=== PATIENT | female | born 2000 | race Two or more races ===

== ENCOUNTER 2025-04-03 01:11 | Emergency (ER) | payer MEDICAID, OTHER ==
[~2025-04-03] VITALS: Ht 165.1 cm; Wt 150.7 kg
--- NOTE | 2025-04-03 02:05 | ED.PDOC ---
History of Present Illness HPI Comments 24-year-old female who came to ER for back pains. Patient with history of the hip dysplasia. States for the past 2 days she has been experiencing lower back pains, radiating to her bilateral hips. Denies any urinary symptoms, recent history of trauma, or tingling in both lower extremities. Patient's self-m edicated with ibuprofen and Tylenol but offered no relief. REVIEW OF SYSTEMS: General: No fever, no chills, or fatigue HEENT: No sore throat, no earache, no congestion, no neck pain. Cardiac: No chest pain. No palpitations. Lungs: No shortness of breath, no cough. GI: No nausea, no vomiting, no diarrhea, no constipation, no abdominal pain : No dysuria, frequency, or urgency. No hematuria. Musculoskeletal: No joint pain , no joint swelling, no extremity edema. (+) back pain Skin: No rash, no itching. Neuro: No headache, no dizziness, no weakness EXAM: General: Awake, alert and oriented. No acute distress. Skin: Skin in warm, dry and intact. Appropriate color for ethnicity. HEENT: The head is normocephalic and atraumatic. Conjunctivae are clear without exudates or hemorrhage. Sclera is non-icteric. EOM are intact. No signs of nystagmus. Eyelids are normal in appearance without swelling or lesions. Oral mucosa is pink and moist Neck: The neck is supple with normal range of motion. No JVD. Cardiac: Heart rate and rhythm are normal. No murmurs, gallops, or rubs are auscultated. Respiratory: No signs of respiratory distress. Lung sounds are clear in all lobes bilaterally without rales, rhonchi, or wheezes. Abdominal: Abdomen is soft, non-tender without distention. Bowel sounds are present and normoactive in all four quadrants. Extremities: Upper and lower extremities are atraumatic in appearance without deformity or edema. Neurological: The patient is awake, alert and oriented to person, place, and t dominique with normal speech. Speech is clear. There is no facial asymmetry. Psychiatric: Appropriate mood and affect. Good judgement and insight Chief Complaint: Back Pain Time Seen by MD: 02:05 Reviewed Notes: Nurses Notes Allergies: Coded Allergies: Morphine (Verified Allergy, Unknown, 04/03/25) Information Source: Patient Mode of Arrival: Ambulatory Past Medical History Past Medical History (Other): Hip dysplasia Surgical History: Denies all surgeries LABORER GENERAL History: Ovarian Cysts Family History Family History: Reviewed,noncontributory to illness Social History Smoker: Non-Smoker Alcohol: Denies ETOH Use Drugs: Denies Drug Use Lives In: Home Was a procedure done? Was a procedure done?: No Differential Dx Considerations may include: Musculoskeletal pain, lumbosacral strain, low back pain, urinary tract infection X-Ray, Labs, Meds, VS Vital Signs Date Time Temp Pulse Resp B/P (MAP) Pulse Ox O2 Delivery O2 Flow Rate FiO2 04/03/25 02:14 85 16 97 Room Air 04/03/25 02:14 97.5 85 16 140/61 (87) 97 97.5 04/03/25 01:13 97.7 84 16 140/80 96 97.7 Current Medications Medications (Trade) Dose Ordered Sig/Rm Route Start Time Stop Time Status Last Admin Ketorolac Tromethamine (Toradol Injection) 30 mg ONCE ONCE IM 04/03/25 02:15 04/03/25 02:16 DC 04/03/25 02:32 Tramadol HCl (Ultram) 50 mg ONCE ONCE PO 04/03/25 02:15 04/03/25 02:16 DC 04/03/25 02:32 Acetaminophen (Tylenol Tablet) 650 mg ONCE ONCE PO 04/03/25 02:15 04/03/25 02:16 DC 04/03/25 02:32 Time of 1ST Reevaluation: 02:03 Reevaluation 1ST: Unchanged Patient Education/Counseling: Need For Follow Up Family Education/Counseling: No Family Present SEPSIS Sepsis Screen Date sepsis recognized/suspect: Apr 03, 2025 Time Sepsis recognized/suspect: 0116 Recent Procedure: No On Antibiotic Therapy: No Respiratory Rate >20: No Heart Rate >90: No Temp<36 C (96.8 F) or >38.3 C: No SBP <90 or MAP <65 mmHG: No New Acute Mental Status Change: No Is the patient on CPAP, BIPAP,: No Vital Signs Date Time Temp Pulse Resp B/P (MAP) Pulse Ox O2 Delivery O2 Flow Rate FiO2 04/03/25 02:14 85 16 97 Room Air 04/03/25 02:14 97.5 85 16 140/61 (87) 97 97.5 04/03/25 01:13 97.7 84 16 140/80 96 97.7 Medications Medications Dose Ordered Sig/Rm Route Start Time Stop Time Status Last Admin Dose Admin Acetaminophen 650 mg ONCE ONCE PO 04/03/25 02:15 04/03/25 02:16 DC 04/03/25 02:32 Ketorolac Tromethamine 30 mg ONCE ONCE IM 04/03/25 02:15 04/03/25 02:16 DC 04/03/25 02:32 Tramadol HCl 50 mg ONCE ONCE PO 04/03/25 02:15 04/03/25 02:16 DC 04/03/25 02:32 Departure 1 Departure Time of Disposition: 03:38 Impression: Primary Impression: Low back pain Disposition: HOME / SELF CARE / HOMELESS Condition: Stable Additional Instructions: ED DISCHARGE INSTRUCTIONS Instructions: Please read all instructions provided in this packet carefully. Although you have been discharged from the Emergency Department, this does not mean that you have a "clean bill of health". No definitive diagnosis for your symptoms has been made today. It is possible that you are in the process of de veloping a serious illness. This is why you must return to the ED without fail if any new or worsening symptoms (especially if your symptoms include chest pain, trouble breathing, abdominal pain, fever, headache, confusion, trouble seeing, or trouble walking) It is also very important that you see a primary care provider (PCP) within the next 3-5 days to follow up. If you are unable to get an appointment, return to the ED for re-evaluation. Back Pain: Care Instructions Table of Contents Overview How can you care for yourself at home? When should you call for help? Credits Overview In most cases, there isn't a clear cause for back pain. It may be related to problems with muscles and ligaments of the back. It may also be related to problems with the nerves, discs, or bones of the back. Moving, lifting, standing, sitting, or sleeping in an awkward way can strain the back. Arthritis is another cause of back pain. Although it may hurt a lot, back pain usually improves on its own within several weeks. Most people recover in 12 weeks or less. Using self-care, such as ice or heat and light activity (like walking) may help you feel better sooner. Follow-up care is a fregoso part of your treatment and safety. Be sure to make and go to all appointments, and call your doctor if you are having problems. It's also a good idea to know your test results and keep a list of the medicines you take. How can you care for yourself at home? Sit or lie in positions that are most comfortable and reduce your pain. Try one of these positions when you lie down: Lie on your back with your knees bent and supported by pillows. Lie on the floor with your legs on the seat of a sofa or chair. Lie on your side with your knees and hips bent and a pillow between your legs. Lie on your stomach if it does not make pain worse. Do not sit up in bed, and avoid soft couches and twisted positions. Bed rest can help relieve pain at first, but it delays healing. Avoid bed rest after the first day of back pain. Change positions every 30 minutes. If you must sit for long periods of time, take breaks from sitting. Get up and walk around, or lie in a comfortable position. Try using a heating pad on a low or medium setting for 15 to 20 minutes every 2 or 3 hours. Try a warm shower in place of one session with the heating pad. You can also try an ice pack for 10 to 15 minutes every 2 to 3 hours. Put a thin cloth between the ice pack and your skin. Take pain medicines exactly as directed. If the doctor gave you a prescription medicine for pain, take it as prescribed. If you are not taking a prescription pain medicine, ask your doctor if you can take an [id number] medicine. Take short walks several times a day. You can start with 5 to 10 minutes, 3 or 4 times a day, and work up to longer walks. Walk on level surfaces and avoid hills and stairs until your back is better. Return to work and other activities as soon as you can. Continued rest without activity is usually not good for your back. To prevent future back pain, do exercises to stretch and strengthen your back and stomach. Learn how to use good posture, safe lifting techniques, and proper body mechanics. When should you call for help? Call your doctor now or seek immediate medical care if: You have new or worsening numbness in your legs. You have new or worsening weakness in your legs. (This could make it hard to stand up.) You lose control of your bladder or bowels. Watch closely for changes in your health, and be sure to contact your doctor if: You have a fever, lose weight, or don't feel well. You do not get better as expected. Credits for Back Pain: Care Instructions Current as of: October 22, 2022 Author: Abad [employer] Staff Clinical Review Board All [employer] education is reviewed by a team that includes physicians, nurses, advanced practitioners, registered dieticians, and other healthcare professionals. e-Prescriptions Acetaminophen (Acetaminophen Er) 650 Mg Tab 650 MG PO TIDPRN PRN, #15 TAB Prov: LONNIE PALACIOS MD 04/03/25 Critical Care Note Critical Care Time?: No Stability Stability form required: No Heart Score Heart Score: Heart Score Response (Comments) Value History N/A 0 EKG N/A 0 Age N/A 0 Risk Factors N/A 0 Troponin N/A 0 Total 0 I personally scribed for LONNIE PALACIOS MD ([email or web address]) on 04/03/25 at 02:05. Electronically submitted by Wilfrido Ni ([facility]). LONNIE PALACIOS MD Apr 03, 2025 02:05
[2025-04-03 02:14] VITALS: BP 140/61; PULSE 85; RESP 16; TEMP 97.5; O2SAT 97
[2025-04-03] MEDS: KETOROLAC TROMETH 30 MG/ML 1ML VIAL IM ONE (02:32)
[2025-04-03] MEDS: ACETAMINOPHEN 325 MG TAB PO ONE (02:32)
[2025-04-03] MEDS ORDERED: ACET650T12 PO (03:39)
== END 2025-04-03 03:57 | disposition home or self-care (01) ==
LOC: ER 01:11
DX: M54.50 Low back pain, unspecified (principal); Z88.5 Allergy status to narcotic agent
CPT/HCPCS: 96372; 99283; J1885